=== PATIENT | male | born 1990 | race Caucasian/White ===

== ENCOUNTER 2017-04-09 20:55 | Emergency (ER) | payer OTHER ==
[2017-04-09 21:40] VITALS: BP 135/93
--- NOTE | 2017-04-09 21:47 | RAD ---
Indication: RIGHT foot third and fourth metatarsal pain following injury. Previous great toe fracture. Comparison: No relevant prior exams available on the [facility] for comparison. Technique: AP, lateral, and oblique views RIGHT foot. Report: Normal articular alignment. Negative for fracture or radiographic stigmata of stress reaction. Negative for significant arthropathic change. Unremarkable soft tissue contours. IMPRESSION: No radiographic evidence for fracture.
--- NOTE | 2017-04-09 21:53 | UC ---
Lower Extremity/Ankle HPI - HPI Summary HPI Summary: 27 y/o male presents to the urgent care c/o RT mid foot pain s/p slipping on ice stairs and landing on lateral side of RT foot around 12hrs ago today. Pt reports swelling and pain is 8/10 w/ movement. He was unable to bear weight at the moment. Later he walked w/ limping. Pt denies numbness and tingling sensation over RT the foot, calf pain, SOB, chest pain, N/V/D - History of Current Complaint Chief Complaint: UCLowerExtremity Stated Complaint: FOOT INJURY Time Seen by Provider: 04/09/17 21:51 Onset/Duration: Sudden Onset, Lasting Days - 1 day, Still Present, Worse Since - today Severity Initially: Mild Severity Currently: Moderate Pain Intensity: 8 Pain Scale Used: 0-10 Numeric Aggravating Factor(s): Ambulation Alleviating Factor(s): Ice Able to Bear Weight: Yes - Risk Factors Gout Risk Factors: Negative DVT Risk Factors: Negative Septic Arthritis Risk Factor: Negative - Allergies/Home Medications Allergies/Adverse Reactions: Allergies Allergy/AdvReac Type Severity Reaction Status Date / Time No Known Allergies Allergy Verified 04/09/17 21:33 PMH/Surg Hx/FS Hx/Imm Hx Previously Healthy: Yes - Pt denies PMHX - Surgical History Surgical History: None - Family History Known Family History: Positive: Cardiac Disease - Social History Occupation: Employed Full-time Lives: With Family Alcohol Use: Occasionally Substance Use Type: None Smoking Status (MU): Never Smoked Tobacco Review of Systems Constitutional: Negative Skin: Negative Eyes: Negative ENT: Negative Respiratory: Negative Cardiovascular: Negative Gastrointestinal: Negative Genitourinary: Negative Motor: Negative Neurovascular: Negative Musculoskeletal: Decreased ROM - RT foot s/p fall, Other: - RT mid foot pain s/ p fall Neurological: Negative Psychological: Negative Is Patient Immunocompromised?: No All Other Systems Reviewed And Are Negative: Yes Physical Exam Triage Information Reviewed: Yes Vital Signs: Initial Vital Signs Temp 99.4 F 04/09/17 21:34 Pulse 67 04/09/17 21:34 Resp 16 04/09/17 21:34 BP 135/93 04/09/17 21:34 Pulse Ox 100 04/09/17 21:34 - Additional Comments Vital Signs Reviewed: Yes General : well developed, well nourished male w/o any apparent distress Eyes: Positive: Conjunctiva Clear - PERRLA, EOMI ENT: Positive: Normal ENT inspection, Hearing grossly normal, Pharynx normal, TMs normal Neck: Positive: Supple, Nontender, No Lymphadenopathy Respiratory: Positive: Chest non-tender, Lungs clear, Normal breath sounds, No respiratory distress Cardiovascular: Positive: RRR, No Murmur, Pulses Normal Abdomen Description: Positive: Nontender, No Organomegaly, Soft. Negative: CVA Tenderness (R), CVA Tenderness (L) Bowel Sounds: Positive: Present Musculoskeletal: Positive: Strength Intact, ROM Intact, No Edema, Other: - Foot/ Toes: Pt is able to bear weight but ambulate with mild limping. RT foot :No surface trauma, ecchymosis, erythema, lesions, ulcers or break in skin integrity. The R foot is without obvious asymmetry or deformity when compared to the L foot. No bony step-off, No tenderness to palpation over toes, point tenderness w/ swelling over the dorsal side of mid foot and base of the 4th and 5th metatarsal and sole at the same level, no tenderness of hindfoot, Decrease plantar/dorsiflexion, inversion/eversion due to pain. Distal motor and neurovascular status are intact. Neurological Exam: Normal Psychological Exam: Normal Skin Exam: Normal Lower Extremity Course/Dx - Course Course Of Treatment: 27 y/o male presents to the urgent care c/o RT mid foot pain s/p slipping on ice stairs and landing on lateral side of RT foot around 12hrs ago today. Pt reports swelling and pain is 8/10 w/ movement. He was unable to bear weight at the moment. Later he walked w/ limping. Pt denies numbness and tingling sensation over RT the foot, calf pain, SOB, chest pain, N /V/D. Hx obtained. Pt w/ point tenderness and mild swelling and base of the 4th and 5th metatarsal and sole at the same level. RT foot X-ray ordered, Impression:There was no radiographic evidence of fracture as perradiologist. Pt' s foot immobilized with aaron-bandage and given a post-op shoe to avoid flexion and given crutches. Advised RICE, and Rx Naproxen PO for pain, If not improvement of symptoms to f/u with Orthopedic DR referral for further evaluation and treatment. Pt's BP is elevated today advised to decrease salt in diet, monitor BP and f/u with PCP for further management. Pt understood and agreed with D/C instructions - Differential Dx/Diagnosis Differential Diagnosis/HQI/PQRI: Dislocation, Fracture (Closed), Sprain, Strain , Tendonitis Provider Diagnoses: 1-RT foot pain s/p fall. 2-Elevated BP w/o Hx of HTN Discharge - Discharge Plan Condition: Stable Disposition: HOME Prescriptions: Naproxen [Naproxen 500 mg] 500 mg PO Q8H PRN #30 tab PRN Reason: Pain Patient Education Materials: Foot Sprain (ED), Low-Sodium Diet (ED) Forms: *Work Release Referrals: [facility] [Outside] - 1 Week Aron Valle MD [Medical Doctor] - 1 Week Additional Instructions: 1-Please take medications as directed to alleviate pain and swelling. 2-Please apply ice, keep your foot immobilized with the aaron bandage and splint. Avoid weight bearing using the crutches 3- Please f/u with Orthopedic or your PCP in 1 week is not improvement of symptoms for further evaluation and treatment. 4-Your BP is elevated today. please decrease salt in your diet, monitor BP and if it continues to be elevated please f/u with your PCP for further management
[2017-04-09] MEDS ORDERED: Naproxen TAB* 250 MG PO ONE (22:06)
== END 2017-04-09 22:39 | disposition home or self-care (01) ==
LOC: UCEAST 20:55
DX: M79.671 Pain in right foot (principal); R03.0 Elevated blood-pressure reading, without diagnosis of hypertension
CPT/HCPCS: 99212; A9270-GY; G0463